=== PATIENT | male | born 1975 | race Caucasian/White ===

== ENCOUNTER 2022-07-28 13:35 | Outpatient (CLI) | payer OTHER, SELFPAY ==
--- NOTE | ~2022-07-28 | XR_ITS ---
XR abdomen/kub 1V 07/28/2022 14:03 INDICATION: Flank pain TECHNIQUE: KUB COMPARISON: None FINDINGS: Bowel gas pattern is normal. There is no evidence of free air, mass, organomegaly, ascites or obstruction. There is a stone in the lower pole of the right kidney. The bones appear intact. IMPRESSION: 1: Right nephrolithiasis. Reviewed, dictated and finalized at location A. IMPRESSION: 1: Right nephrolithiasis.
[2022-07-28 14:06] LABS: Add Urine Microscopic? YES; Appearance Urine Clear (Clear); Bilirubin Urine Negative (Negative); Blood Urine Negative (Negative); Color Urine Yellow (Yellow); Glucose Urine UA Negative (Negative); Ketones Urine 1+ mg/dL (Negative); Leukocyte Esterase Ur Negative LEU/UL (NEGATIVE); Nitrate Urine Negative (Negative); Protein Urine Negative (Negative); RBC Urine 0-2 /hpf (0-2); Urobilinogen Urine Negative mg/dL (<2.0); WBC Urine 0-3 /hpf (0-3)
[2022-07-28 14:12] LABS: Alanine Aminotransferase 56 U/L (6-50); Albumin Level 4.8 g/dL (3.5-5.1); Alkaline Phosphatase 70 U/L (38-126); Anion Gap 12 mmol/L (8-16); Aspartate Amino Transferase 35 U/L (17-59); Bilirubin,Total 0.8 mg/dL (0.2-1.3); Blood Urea Nitrogen 17 mg/dL (9-20); Calcium 9.4 mg/dL (8.4-10.2); Carbon Dioxide 24 mmol/L (22-30); Chloride 104 mmol/L (98-107); Estimated Glomerular Filt Rate > 60; Glucose 84 mg/dL (65-110); Potassium 4.2 mmol/L (3.4-5.0); Sodium 140 mmol/L (137-145)
== END 2022-07-28 13:36 | disposition home or self-care (01) ==
PROVIDERS: PCP Family Medicine; Visit Provider Physician Assistant
DX: N20.0 Calculus of kidney (principal); R10.9 Unspecified abdominal pain; I10 Essential (primary) hypertension
CPT/HCPCS: 36415; 74018; 80053; 81001

== ENCOUNTER 2022-08-14 10:09 | Outpatient (CLI) | payer OTHER, SELFPAY ==
--- NOTE | ~2022-08-14 | CT_ITS ---
EXAMINATION: CT abdomen pelvis wo con DATE: 08/14/2022 10:30 INDICATION: Right nephrolithiasis, flank pain TECHNIQUE: Computed tomography (CT) of the abdomen and pelvis was performed without intravenous contr ast. The dose-length product (DLP) was 754.82 mGy-cm. Automated exposure control and iterative recons truction technique were employed. COMPARISON: None FINDINGS: Minimal dependent atelectasis is present in the lung bases. The heart size is normal. The l iver, spleen, pancreas, gallbladder, and adrenal glands are normal. There is a [address] one of the right kidney. No stones are identified in the left kidney, ureters, or the bladder. There is no hydronephrosis or hydroureter. No pathologically enlarged abdominal or pelvic lymph nodes are i dentified. There is no free intraperitoneal gas or evidence of bowel obstruction. Colonic diverticulo sis is present without evidence of diverticulitis. A fat-containing umbilical hernia is noted. There is mild lumbar spondylosis. IMPRESSION: 1. Nonobstructing right nephrolithiasis. Reviewed, dictated and finalized at location B. TH TECHNICAL WRITER
== END 2022-08-14 10:10 | disposition home or self-care (01) ==
PROVIDERS: PCP Family Medicine; Visit Provider Physician Assistant
DX: N20.0 Calculus of kidney (principal); R10.9 Unspecified abdominal pain
CPT/HCPCS: 74176

== ENCOUNTER 2022-09-27 13:47 | Outpatient (CLI) | payer OTHER, SELFPAY | END 2022-09-27 13:48 | disposition home or self-care (01) | LOC: ANHAUDIO 13:48 | PROVIDERS: PCP Family Medicine; Visit Provider Otolaryngology | DX: H91.93 Unspecified hearing loss, bilateral (principal); H93.13 Tinnitus, bilateral | CPT/HCPCS: 92557; 92567 ==

== ENCOUNTER 2025-01-30 02:03 | Day surgery (SDC) | payer OTHER, SELFPAY ==
[2025-01-21 09:53] VITALS: BMI 38.7
--- OUTSIDE RECORDS SUMMARY | 2025-01-30 02:06 | XMS_ITS | Clinical Summary ---
Author Organization 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, dx 1995 (Added by TW Conv) Family History Medical History Relation Name Comments Coronary artery disease Maternal Grandmother Coronary Artery Disease - (Added by TW Conv) Diabetes Maternal Grandmother Diabete s Mellitus - (Added by TW Conv) Hypertension Maternal Grandmother Hyperte nsion - (Added by TW Conv) Diabetes Mother's Sister Diabetes Janet litus - (Added by TW Conv) Hypertension Paternal Grandmother Hyperte nsion - (Added by TW Conv) Relation Name Status Comments Maternal Grandmother Mother's Sister Paternal Grandmother Social History Tobacco Use Types Packs/Day Years Used Date Smoking Tobacco: Never Sex and Gender Information Value Date Recorded Sex Assigned at Not on file Legal Sex Male 7:49 PM DIRECTOR PHYSICAL THERAPY Gender Identity Not on file Sexual Orientation Not on file Obstetrics History Last Filed Vital Signs Vital Sign Reading Time Taken Comments Blood Pressure 139/91 10/30/2012 8:03 AM DIRECTOR PHYSICAL THERAPY Pulse 82 10/30/2012 8:03 AM DIRECTOR PHYSICAL THERAPY Temperature - - Respiratory Rate - - Oxygen Saturation - - Inhaled Oxygen Concentration - - Weight 102.2 kg (225 lb 6.4 oz) 10/30/2012 8:03 AM DIRECTOR PHYSICAL THERAPY Height 167.6 cm (5' 6 ) 10/30/2012 8:03 AM DIRECTOR PHYSICAL THERAPY Body Mass Index 36.38 10/30/2012 8:03 AM DIRECTOR PHYSICAL THERAPY Plan of Treatment Not on file Insurance [employer] SIG [id number] Care Teams Data Analytics Architect Relationship Specialty Start Date End Date Aamir Downing MD [address] [facility] [address] [place] [address] PCP - General Family Medicine 12/28/17
--- OUTSIDE RECORDS SUMMARY | 2025-01-30 02:06 | XMS_ITS | Referral Summary ---
Author Organization [facility] [address] Address [address] [place] [address] Care Team Providers Care Rehabilitation Program Manager Name Role Phone Aamir Downing MD Primary Care Provider Social History Tobacco Use Types Packs/Day Years Used Date Smoking Tobacco: Never Sex and Gender Information Value Date Recorded Sex Assigned at Not on file Legal Sex Male 7:49 PM INJURY/SAFETY HAZARD ASSESSMENT Gender Identity Not on file Sexual Orientation Not on file Last Filed Vital Signs Vital Sign Reading Time Taken Comments Blood Pressure 139/91 10/30/2012 8:03 AM INJURY/SAFETY HAZARD ASSESSMENT Pulse 82 10/30/2012 8:03 AM INJURY/SAFETY HAZARD ASSESSMENT Temperature - - Respiratory Rate - - Oxygen Saturation - - Inhaled Oxygen Concentration - - Weight 102.2 kg (225 lb 6.4 oz) 10/30/2012 8:03 AM INJURY/SAFETY HAZARD ASSESSMENT Height 167.6 cm (5' 6 ) 10/30/2012 8:03 AM INJURY/SAFETY HAZARD ASSESSMENT Body Mass Index 36.38 10/30/2012 8:03 AM INJURY/SAFETY HAZARD ASSESSMENT Plan of Treatment Not on file Insurance [employer] SIG [id number] Care Teams Rehabilitation Program Manager Relationship Specialty Start Date End Date Aamir Downing MD [address] [facility] [address] [place] [address] PCP - General Family Medicine 12/28/17
[2025-01-30 11:42] VITALS: BP 149/93; PULSE 90; RESP 20; TEMP 36.1; O2SAT 99; BMI 41.9
--- NOTE | 2025-01-30 11:42 | P.PNAN_ITS ---
Anes - Initial Pre Proc Eval Procedure: Operation Date: 01/30/25 13:00 Proposed Procedures p Screening Colonoscopy - Rich Carson MD Date/Time: 01/30/25 11:42 Surgeon: Rich Carson MD Pre Op Diagnosis: screening of colon/rectum Patient Data Age: 49 Gender: M Height: 1.68 m Weight: 108.9 kg Allergies Allergy/AdvReac Type Severity Reaction Status Date / Time Penicillins Allergy Severe FEVER AND Verified 01/30/25 11:41 RASH amoxicillin Allergy Mild rash Verified 01/30/25 11:41 carbamazepine Allergy Mild unknown Verified 01/30/25 11:41 phenytoin Allergy Mild unknown Verified 01/30/25 11:41 phenobarbital Allergy Unknown unknown Verified 01/30/25 11:41 Home Medications ?Medication ?Instructions ?Recorded ?Confirmed ?Type fluticasone propionate 50 1 - 2 spray intranasal BID #15.8 mL 09/18/22 01/30/25 Rx mcg/actuation nasal spray,suspension lisinopril 20 mg tablet 20 mg PO DAILY #90 tabs 08/18/24 01/30/25 Rx omeprazole 20 mg delayed 20 mg PO DAILY 01/21/25 01/30/25 History release,disintegrating tablet Patient hx anesthesia problems: none Family hx anesthesia problems: none Results Review: All pre-operative results and documents have been reviewed as part of the pre- operative evaluation. [facility] Family History Family History Mother Patient's mother is in good health Father Patient's father is in good health Other Hypertension Social History Social History Smoking status: Never smoker Second hand tobacco smoke exposure: No Alcohol intake: current Drinks per week: 12 Alcohol use details: occasionally Substance use: never Substance use type: does not use Lack of Transportation: No Lack of Food: Never True Current Housing: I Have Housing Concerned About Future Housing: No Difficulty Paying Gas/Electric Bills: No Difficulty Paying for Meds: No Currently Unemployed: No Education: Decline to Answer Difficulty w/ Childcare or Family Care: No Living arrangements: with family Occupation/Education: occupation Gender identity (if verbalized by the patient): Male Spiritual care concerns: No Anes - Eval Final PreProcedure Day of Procedure 01/30/25 11:42 Patient weight: obese Heart: regular rate and rhythm Lungs: clear to auscultation Airway: Mallampati scale Neurological: alert and oriented Last oral intake: >/= 8 hours Emergent: no Anesthetic plan: proceed Results Review: All pre-operative results and documents have been reviewed as part of the pre-operative evaluation. Informed Consent: The patient's anesthetic plan and its attendant risks and benefits were discussed with the patient/family/POA. Questions were solicited and answers provided to the satisfaction of the patient/family/POA.
[2025-01-30] MEDS: LACTATED RINGERS 1,000 ML 150 ML IV CONT (12:03)
--- NOTE | 2025-01-30 12:15 | PM.IMHP ---
H&P: HPI History of Present Illness Date/Time: 01/30/25 12:15 Chief Complaint: Screening colonoscopy Narrative: This is the patient's first colonoscopy. There are no GI symptoms and there is no family history of colorectal cancer. Review of Systems Review of Systems: All systems reviewed & are unremarkable except as noted in HPI and below PMFSH Family History Family History Mother Patient's mother is in good health Father Patient's father is in good health Other Hypertension Social History Social History Smoking status: Never smoker Second hand tobacco smoke exposure: No Alcohol intake: current Drinks per week: 12 Alcohol use details: occasionally Substance use: never Substance use type: does not use Lack of Transportation: No Lack of Food: Never True Current Housing: I Have Housing Concerned About Future Housing: No Difficulty Paying Gas/Electric Bills: No Difficulty Paying for Meds: No Currently Unemployed: No Education: Decline to Answer Difficulty w/ Childcare or Family Care: No Living arrangements: with family Occupation/Education: occupation Gender identity (if verbalized by the patient): Male Spiritual care concerns: No Meds Home Medications and Allergies Home Medications ?Medication ?Instructions ?Recorded ?Confirmed ?Type fluticasone propionate 50 1 - 2 spray intranasal BID #15.8 mL 09/18/22 01/30/25 Rx mcg/actuation nasal spray,suspension lisinopril 20 mg tablet 20 mg PO DAILY #90 tabs 08/18/24 01/30/25 Rx omeprazole 20 mg delayed 20 mg PO DAILY 01/21/25 01/30/25 History release,disintegrating tablet Allergies Allergy/AdvReac Type Severity Reaction Status Date / Time Penicillins Allergy Severe FEVER AND Verified 01/30/25 11:41 RASH amoxicillin Allergy Mild rash Verified 01/30/25 11:41 carbamazepine Allergy Mild unknown Verified 01/30/25 11:41 phenytoin Allergy Mild unknown Verified 01/30/25 11:41 phenobarbital Allergy Unknown unknown Verified 01/30/25 11:41 Vital Signs Vital Signs - 24 hr 01/30/25 11:42 Temperature 97 F L Pulse Rate 90 Respiratory Rate 20 Blood Pressure 149/93 H Pulse Oximetry 99 Oxygen Delivery Room Air Exam Const: General: cooperative and healthy appearing Resp: Effort & Inspection: normal respiratory effort and able to speak in complete sentences Auscultation: clear to auscultation bilaterally Cardio: Rate: regular rate Rhythm: regular rhythm GI: Inspection: normal to inspection GI Palp: No No hepatosplenomegaly present Auscultation: normal bowel sounds Rectal Exam: deferred Skin: General skin exam: normal color Psych: Appearance: grossly normal Mental Status: mental status grossly normal Assessment and Plan Assessment and plan (1) Encounter for screening colonoscopy: Code(s): Z12.11 - Encounter for screening for malignant neoplasm of colon Status: Acute Assessment and Plan: The patient is deemed a good candidate for the procedure. Consent signed. Will proceed.
[2025-01-30 12:41] VITALS: BP 114/80; PULSE 93; RESP 20; O2SAT 98
[2025-01-30 12:51] VITALS: BP 119/76; PULSE 88; RESP 15; O2SAT 98
[2025-01-30 13:01] VITALS: BP 120/75; PULSE 79; RESP 15; O2SAT 100
== END 2025-01-30 13:13 | disposition home or self-care (01) ==
PROVIDERS: PCP Family Medicine; Referring Provider Physician Assistant; Visit Provider Internal Medicine Gastroenterology
PROC: 0DJD8ZZ Inspection of Lower Intestinal Tract, Via Natural or Artificial Opening Endoscopic (ICD-10-PCS; CPT 45378; principal; 2025-01-30 13:00)
DX: Z12.11 Encounter for screening for malignant neoplasm of colon (principal); K64.8 Other hemorrhoids; K57.30 Diverticulosis of large intestine without perforation or abscess without bleeding; E66.9 Obesity, unspecified; Z68.41 Body mass index [BMI] 40.0-44.9, adult
CPT/HCPCS: 45378; J2003; J2704; J7120